=== PATIENT | female | born 1990 | race Caucasian/White ===

== ENCOUNTER 2017-06-05 18:07 | Emergency (ER) | payer BC ==
[2017-06-05 18:19] VITALS: TEMP 98.2
[2017-06-05] MEDS ORDERED: NS 1,000 ML IV ONE (18:47)
[2017-06-05 19:17] LABS: % IMMATURE GRANULYOCYTES 0.1 % (0.0-1.1); ABSOLUTE IMMATURE GRANULOCYTES 0.01 10^3/uL (0.00-0.10); ADD DIFF? NO; ADD MORPH? NO; ADD SCAN? NO; ATYPICAL LYMPHOCYTE FLAG 10 (0-99); FRAGMENT RBC FLAG 0 (0-99); HEMATOCRIT 41.6 % (38.0-47.0); HEMOGLOBIN 13.8 g/dL (12.6-16.3); LEFT SHIFT FLG 0 (0-99); LIPEMIA HEMOLYSIS FLAG 80 (0-99); MEAN CELL HEMOGLOBIN 29.1 pg (27.9-34.1); MEAN CELL HEMOGLOBIN CONCENTR. 33.2 g/dL (32.4-36.7); MEAN CELL VOLUME 87.8 fL (81.5-99.8); MEAN PLATELET VOLUME 9.6 fL (8.7-11.7); PLATELET CLUMPS FLAG 0 (0-99); PLATELET COUNT 276 10^3/uL (150-400); RED BLOOD CELL COUNT 4.74 10^6/uL (4.18-5.33); RED CELL DISTRIBUTION WIDTH 13.5 % (11.5-15.2)
[2017-06-05 19:27] LABS: COLOR COLORLESS; LEUKOCYTE ESTERASE,URINE NEGATIVE (NEGATIVE); NITRITE,URINE NEGATIVE (NEGATIVE)
[2017-06-05 19:32] LABS: ALANINE AMINOTRANSFERASE 41 IU/L (9-52); ALBUMIN 5.3 g/dL (3.5-5.0); ALKALINE PHOSPHATASE 59 IU/L (38-126); ANION GAP 17 mEq/L (8-16); ASPARTATE AMINOTRANSFERASE 24 IU/L (14-46); BILIRUBIN,TOTAL 0.7 mg/dL (0.1-1.4); BILIRUBIN-CONJUGATED 0.2 mg/dL (0.0-0.5); BILIRUBIN-UNCONJUGATED 0.5 mg/dL (0.0-1.1); CALCIUM 10.6 mg/dL (8.5-10.4); CARBON DIOXIDE 23 mEq/l (22-31); CHLORIDE 102 mEq/L (97-110); CREATININE 0.7 mg/dL (0.6-1.0); GLOMERULAR FILTRATION RATE > 60; GLUCOSE 88 mg/dL (70-100); POTASSIUM 3.8 mEq/L (3.5-5.2); SODIUM 142 mEq/L (134-144); TOTAL PROTEIN 8.6 g/dL (6.3-8.2)
[2017-06-05] MEDS ORDERED: IOPAMIDOL (ISOVUE-300) 100 ML BTL ONE (19:34)
[2017-06-05 19:36] LABS: BACTERIA TRACE /hpf (NONE SEEN)
--- NOTE | 2017-06-05 19:46 | EDPHY ---
General Narrative: CHIEF COMPLAINT: Abdominal pain, lymph nodes HISTORY OF PRESENT ILLNESS: Patient complains of 1 month history of multiple complaints. This includes left -sided anterior cervical lymphadenopathy, left submandibular swelling, abdominal pain, left inguinal lymph node. Symptoms have been constant. They wax and wane from mild to moderate. Some nausea but no vomiting. Decreased appetite. No trauma to the abdomen. She feels as though her left upper quadrant is the most painful of the abdomen. She has had workup here with negative mono test. She was then seen by her primary care physician with further laboratory studies. She reports said mono test at the negative twice, further laboratory studies negative including sexually transmitted infection labs, immunology testing and allergy testing. She has been placed on doxycycline and completed this without improvement of her symptoms. No other associated complaints or modifying. REVIEW OF SYSTEMS: Ten systems reviewed and are negative unless otherwise noted in the HPI PCP: Dr. Ferreira SPECIALISTS: None PAST MEDICAL HISTORY: None PAST SURGICAL HISTORY: None SOCIAL HISTORY: Nonsmoker. Occasional alcohol. Occasional marijuana use. Works at a restaurant. Originally [place] FAMILY HISTORY: Noncontributory EXAMINATION General Appearance: Alert, no distress Head: normocephalic, atraumatic Eyes: Pupils equal and round, no conjunctival pallor or injection ENT, Mouth: Mucous membranes moist. Uvula midline. Airway widely patent without erythema or edema Neck: Normal inspection, supple, non-tender tender left anterior cervical lymphadenopathy. No supraclavicular lymphadenopathy. Respiratory: Lungs are clear to auscultation. No wheezing, rhonchi or crackles Cardiovascular: Regular rate and rhythm. No murmur. Gastrointestinal: Abdomen is soft and nondistended. There is tenderness and guarding left upper quadrant. Mild splenomegaly appreciated. No hepatomegaly appreciated. No tympany. No rigidity. No CVA tenderness. Neurological: A&O, nonfocal, strength is symmetric in the upper extremities. Skin: Warm and dry. No petechiae or purpura. No rash on the palms of the hand to the soles of the feet. No lesions of the nails Extremities: Nontender, no pedal edema Psychiatric: Mood and affect normal DIFFERENTIAL DIAGNOSES: Including but not limited to lymphadenopathy, lymphoma, splenomegaly, mononucleosis, viral illness, mesenteric adenitis, colitis, [place] flare MDM: 6:50 p.m. Abdominal pain lymphadenopathy that has been ongoing for over a month. Vital signs are stable. Her abdominal exam does reveal some left sided tenderness and guarding. I do not feel this is a surgical abdomen, but given the pain and guarding I have ordered CT scan of the abdomen pelvis. Laboratory studies ordered. IV fluid ordered. I have reviewed her laboratory studies from May 11. These were extensive by her primary care physician. Acute mono test negative, but she does have EBV IgG. I will recheck her abdominal laboratory studies at this time 7:10 p.m. Patient re-evaluated with female power cleaner operator present (Reena). There is left inguinal lymphadenopathy. 9:10 p.m. Notified by radiologist Dr. Lobo. No significant finding on CT of the abdomen pelvis. 9:20 p.m. Patient re-evaluated. She is feeling well. Abdominal pain is minimal. No nausea vomiting. We discussed the laboratory studies which are within normal limits. We discussed the CT scan. Patient is comfortable and reassured knowing that there is no significant finding on the CT scan. We discussed follow up with her primary care physician to discuss further workup. She is comfortable this. She is discharged in stable condition with ED precautions. SUPERVISION: Patient was independently examined, but I discussed the case with my secondary supervising physician Dr. Severino - Diagnostics Imaging Results: Imaging Impressions Abdomen CT 06/05/17 18:50 Impression: 1. No acute abdominal or pelvic abnormality. 2. See above report for specific findings. Results called and discussed with David Clark PA-C, on June 05, 2017 at 2110. - History Smoking Status: Never smoked - Objective Vital Signs: Initial Vital Signs Temperature (C) 98.2 F 06/05/17 18:15 Heart Rate 90 06/05/17 18:15 Respiratory Rate 16 06/05/17 18:15 Blood Pressure 108/77 06/05/17 18:15 O2 Sat (%) 98 06/05/17 18:15 O2 Delivery Mode Room Air Allergies/Adverse Reactions: No Known Allergies Allergy (Unverified 06/05/17 18:15) Home Medications: Medication Instructions Recorded NK [No Known Home Meds] 06/05/17 Laboratory Results: Laboratory Results 06/05/17 18:55 06/05/17 18:55 06/05/17 06/05/17 06/05/17 18:55 18:55 18:55 WBC RBC Hgb Hct MCV MCH MCHC RDW Plt Count MPV Neut % (Auto) Lymph % (Auto) [place] % (Auto) Eos % (Auto) Baso % (Auto) Nucleat RBC Rel Count Absolute Neuts (auto) Absolute Lymphs (auto) Absolute Monos (auto) Absolute Eos (auto) Absolute Basos (auto) Absolute Nucleated RBC Immature Gran % Immature Gran # Sodium 142 mEq/L mEq/L (134-144) Potassium 3.8 mEq/L mEq/L (3.5-5.2) Chloride 102 mEq/L mEq/L (97-110) Carbon Dioxide 23 mEq/l mEq/l (22-31) Anion Gap 17 mEq/L H mEq/L (8-16) BUN 8 mg/dL mg/dL (7-23) Creatinine 0.7 mg/dL mg/dL (0.6-1.0) Estimated GFR > 60 Glucose 88 mg/dL mg/dL (70-100) Calcium 10.6 mg/dL H mg/dL (8.5-10.4) Total Bilirubin 0.7 mg/dL mg/dL (0.1-1.4) Conjugated Bilirubin 0.2 mg/dL mg/dL (0.0-0.5) Unconjugated Bilirubin 0.5 mg/dL mg/dL (0.0-1.1) AST 24 IU/L IU/L (14-46) ALT 41 IU/L IU/L (9-52) Alkaline Phosphatase 59 IU/L IU/L (38-126) Total Protein 8.6 g/dL H g/dL (6.3-8.2) Albumin 5.3 g/dL H g/dL (3.5-5.0) Lipase 62 IU/L IU/L (23-300) Beta HCG, Qual NEGATIVE Urine Color COLORLESS Urine Appearance CLEAR Urine pH 7.0 (5.0-7.5) Ur Specific [place] 1.002 (1.002-1.030) Urine Protein NEGATIVE (NEGATIVE) Urine Ketones TRACE H (NEGATIVE) Urine Blood NEGATIVE (NEGATIVE) Urine Nitrate NEGATIVE (NEGATIVE) Urine Bilirubin NEGATIVE (NEGATIVE) Urine Urobilinogen NEGATIVE EU EU (0.2-1.0) Ur Leukocyte Esterase NEGATIVE (NEGATIVE) Urine RBC 1-3 /hpf /hpf (0-3) Urine WBC 1-3 /hpf /hpf (0-3) Ur Epithelial Cells TRACE /lpf /lpf (NONE-1+) Urine Bacteria TRACE /hpf H /hpf (NONE SEEN) Urine Glucose NEGATIVE (NEGATIVE) 06/05/17 18:55 WBC 7.56 10^3/uL 10^3/uL (3.80-9.50) RBC 4.74 10^6/uL 10^6/uL (4.18-5.33) Hgb 13.8 g/dL g/dL (12.6-16.3) Hct 41.6 % % (38.0-47.0) MCV 87.8 fL fL (81.5-99.8) MCH 29.1 pg pg (27.9-34.1) MCHC 33.2 g/dL g/dL (32.4-36.7) RDW 13.5 % % (11.5-15.2) Plt Count 276 10^3/uL 10^3/uL (150-400) MPV 9.6 fL fL (8.7-11.7) Neut % (Auto) 64.6 % % (39.3-74.2) Lymph % (Auto) 27.8 % % (15.0-45.0) [place] % (Auto) 6.3 % % (4.5-13.0) Eos % (Auto) 0.8 % % (0.6-7.6) Baso % (Auto) 0.4 % % (0.3-1.7) Nucleat RBC Rel Count 0.0 % % (0.0-0.2) Absolute Neuts (auto) 4.88 10^3/uL 10^3/uL (1.70-6.50) Absolute Lymphs (auto) 2.10 10^3/uL 10^3/uL (1.00-3.00) Absolute Monos (auto) 0.48 10^3/uL 10^3/uL (0.30-0.80) Absolute Eos (auto) 0.06 10^3/uL 10^3/uL (0.03-0.40) Absolute Basos (auto) 0.03 10^3/uL 10^3/uL (0.02-0.10) Absolute Nucleated RBC 0.00 10^3/uL 10^3/uL (0-0.01) Immature Gran % 0.1 % % (0.0-1.1) Immature Gran # 0.01 10^3/uL 10^3/uL (0.00-0.10) Sodium Potassium Chloride Carbon Dioxide Anion Gap BUN Creatinine Estimated GFR Glucose Calcium Total Bilirubin Conjugated Bilirubin Unconjugated Bilirubin AST ALT Alkaline Phosphatase Total Protein Albumin Lipase Beta HCG, Qual Urine Color Urine Appearance Urine pH Ur Specific [place] Urine Protein Urine Ketones Urine Blood Urine Nitrate Urine Bilirubin Urine Urobilinogen Ur Leukocyte Esterase Urine RBC Urine WBC Ur Epithelial Cells Urine Bacteria Urine Glucose Medications Given: Discontinued Medications Sodium Chloride (Ns) 1,000 mls @ 0 mls/hr IV EDNOW ONE; Wide Open PRN Reason: Protocol Stop: 06/05/17 18:48 Last Admin: 06/05/17 19:00 Dose: 1,000 mls Departure - Departure Disposition: Home, Routine, Self-Care Clinical Impression: Lymphadenopathy of left cervical region, Lymphadenopathy, inguinal Abdominal pain Qualifiers: Abdominal location: unspecified location Qualified Code(s): R10.9 - Unspecified abdominal pain Condition: Good Instructions: Lymphadenopathy (ED), Acute Abdominal Pain (ED) Additional Instructions: 1. Contact your primary care physician 2. Ibuprofen [id number], 500 mg every 6-8 hours as needed 3. ED precautions as discussed Referrals: BON DELA CRUZ [Primary Care Provider] - As per Instructions Stand Alone Forms: Physical Education Excuse
[2017-06-05 22:05] VITALS: BP 116/80; PULSE 79; RESP 20; O2SAT 96
== END 2017-06-05 22:04 | disposition home or self-care (01) ==
DX: R10.12 Left upper quadrant pain (principal); R59.0 Localized enlarged lymph nodes; E86.9 Volume depletion, unspecified
CPT/HCPCS: Q9967

== ENCOUNTER → 2017-06-15 | Outpatient (CLI) | payer BC ==
[~2017-06-15] MED LIST: IOPAMIDOL (ISOVUE-300) 100 ML BTL ONE
== END ==
LOC: FIMAGING 13:01
PROVIDERS: ATTEND Family Medicine
DX: E83.52 Hypercalcemia (principal); R59.1 Generalized enlarged lymph nodes
CPT/HCPCS: Q9967